=== PATIENT | male | born 1960 | race Caucasian/White ===

== ENCOUNTER 2017-12-25 09:59 | Inpatient (IN) ==
[2017-12-25] MEDS ORDERED: NITROGLYCERIN 2% OINT 1 INCH/GM PACK TOP STA (10:21)
[2017-12-25] MEDS ORDERED: ONDANSETRON 4 MG/2 ML VIAL IV STA (10:21)
[2017-12-25] MEDS ORDERED: MORPHINE 4 MG/1 ML VIAL IV STA (10:21)
[2017-12-25] MEDS ORDERED: methylPREDNISolone SOD SUC 125 MG/2 ML VIAL IV STA (10:21)
[2017-12-25] MEDS ORDERED: FUROSEMIDE 100 MG/10 ML VIAL IV STA (10:21)
[2017-12-25 10:26] LABS: Basophils # 0.1 10*3/uL (0.0-0.2); Basophils % 0.5 % (0.0-0.8); Eosinophils # 0.1 10*3/uL (0.0-0.87); Eosinophils % 0.4 % (0.00-10.9); Hematocrit 43.7 VOL% (42.0-52.0); Hemoglobin 13.8 GM/DL (14.0-18.0); Immature Granulocytes % 1.1 %; Immature Granulocytes Absolute 0.18 #; Lymphocytes # 1.3 10*3/uL (1.4-4.0); Lymphocytes % 7.6 % (21.2-54.2); Mean Corpuscular HGB Conc 31.6 GM/DL (32-36); Mean Corpuscular Hemoglobin 29 PG (27-34); Mean Corpuscular Volume 91.4 FL (87-102); Mean Platelet Volume 10.6 FL (9.6-12.0); Monocytes # 1.6 10*3/uL (0.11-0.8); Monocytes % 9.7 % (1.7-12.7); NRBC # 0.04 10*3/uL; Neutrophils # 13.6 10*3/uL (1.4-7.4); Neutrophils % 80.7 % (38.7-73.9); Platelet Count 349 T/CUMM (130-400); Red Blood Count 4.78 MC/CUMM (3.8-5.5); Red Cell Distribution Width 14.9 % (9.3-17.3); White Blood Count 16.8 T/CUMM (4-12)
[2017-12-25] MEDS ORDERED: ALBUTEROL 2.5 MG/3 ML NEB RESP TX SCH (10:30)
[2017-12-25 10:33] LABS: PT Patient Result 10.8 SECS
[2017-12-25] MEDS ORDERED: NITROGLYCERIN 2% OINT 1 INCH/GM PACK TOP ONE (10:33)
[2017-12-25] MEDS ORDERED: ONDANSETRON 4 MG/2 ML VIAL ONE (10:33)
[2017-12-25] MEDS ORDERED: FUROSEMIDE 100 MG/10 ML VIAL ONE (10:34)
[2017-12-25] MEDS ORDERED: methylPREDNISolone SOD SUC 125 MG/2 ML VIAL ONE (10:34)
[2017-12-25] MEDS ORDERED: MORPHINE 4 MG/1 ML VIAL ONE (10:34)
[2017-12-25 10:45] LABS: Albumin 2.9 G/DL (3.4-5.0); Bilirubin,Total 0.5 MG/DL (0.2-1.0); Calcium 8.9 MG/DL (8.5-10.1); Osmolality,Calculated 276.7 MOS/KG (273-304); Potassium 5.1 MMOL/L (3.5-5.1); Total Protein 7.3 G/DL (6.4-8.3)
[2017-12-25 10:46] LABS: Troponin I Only 0.392 NG/ML (0.00-0.045)
[2017-12-25] MEDS ORDERED: ENOXAPARIN 100 MG/ML SYRINGE SUBCUT STA (10:50)
[2017-12-25] MEDS ORDERED: ENOXAPARIN 120 MG/0.8 ML SYRINGE SUBCUT ONE (11:02)
[2017-12-25] MEDS ORDERED: ETOMIDATE 20 MG/10 ML VIAL IV STA (11:23)
[2017-12-25] MEDS ORDERED: VECURONIUM 10 MG VIAL IV STA ×2 (11:24→12:41)
[2017-12-25] MEDS ORDERED: DEXTROSE 50% 25 GM/50 ML VIAL IV PRN (11:47)
[2017-12-25] MEDS ORDERED: GLUCAGON 1 MG VIAL IM PRN (11:47)
[2017-12-25 11:50] LABS: ABG Base Excess 0.3 MMOL/L (-2.5-2.5); ABG HCO3 24.7 MMOL/L (20-26); ABG Oxygen Saturation 98.1 % (95-100); ABG TCO2 28.8 MMOL/L (23-27)
[2017-12-25 11:55] LABS: ABG PCO2 83.9 MM HG (35-48); ABG PH 7.194 (7.35-7.45)
[2017-12-25] MEDS ORDERED: SODIUM BICARBONATE 50 MEQ/50 ML VIAL IV STA (11:57)
[2017-12-25 12:05] LABS: Risk Ratio 3.5; VLDL CHOLESTEROL 26.8 MG/DL
[2017-12-25] MEDS ORDERED: SODIUM BICARBONATE 50 MEQ/50 ML SYRINGE IV ONE (12:06)
[2017-12-25] MEDS ORDERED: PROPOFOL 1,000 MG/100 ML BOTTLE IV ONE (12:17)
[2017-12-25] MEDS: PROPOFOL 1,000 MG/100 ML BOTTLE IV SCH ×3 (12:28→22:28)
[2017-12-25] MEDS ORDERED: AZITHROMYCIN INJ 500 MG in SODIUM CHLORIDE 0.9% 250 ML IV SCH (12:30)
[2017-12-25 12:31] LABS: Apearance,Urine CLEAR (Clear); Bacteria,Urine Occasional /HPF (Few); Bilirubin,Urine Negative (Negative); Blood, Urine Small mg/dL (Negative); Glucose,Urine (UA) 150 mg/dL (Negative); Ketones,Urine Negative (Negative); Nitrite,Urine Negative (Negative); Protein,Urine >=500 MG/DL; RBC,Urine 1 /HPF (0-4); Squamous Epithelial Cell,Urine Occasional /HPF (0-10); Urine Color Yellow (Yellow); Urine Specific Gravity 1.018 (1.001-1.035); Urine Urobilinogen < 2.0 EU/DL (0.2-1.0); WBC,Urine 1 /HPF (0-6)
[2017-12-25] MEDS ORDERED: VECURONIUM 10 MG VIAL IV ONE ×2 (12:35→16:10)
[2017-12-25] MEDS ORDERED: ALBUTEROL 2.5 MG/3 ML NEB RESP TX PRN (12:44)
[2017-12-25] MEDS: ALBUTEROL/IPRATROPIUM 3 ML NEB RESP TX SCH ×2 (13:18→20:26)
[2017-12-25] MEDS: cefTRIAXone 1,000 MG in SYRINGE 1 EACH IV SCH (14:45)
[2017-12-25 15:09] LABS: ABG HCO3 31.1 MMOL/L (20-26); ABG Oxygen Saturation 93.9 % (95-100); ABG PCO2 42.1 MM HG (35-48); ABG PH 7.486 (7.35-7.45); ABG PO2 66.8 MM HG (80-95); ABG TCO2 32.4 MMOL/L (23-27); Allen Test Positive; Pt O2 Delivery Device Ventilator
[2017-12-25] MEDS: AZITHROMYCIN INJ 500 MG in SODIUM CHLORIDE 0.9% 250 ML IV SCH (15:18)
[2017-12-25] MEDS ORDERED: FUROSEMIDE 40 MG/4 ML VIAL IV SCH (16:00)
[2017-12-25 16:05] LABS: ABG Base Excess 6.3 MMOL/L (-2.5-2.5); ABG HCO3 30.1 MMOL/L (20-26); ABG Oxygen Saturation 95.5 % (95-100); ABG PCO2 40.3 MM HG (35-48); ABG PH 7.491 (7.35-7.45); ABG PO2 80.3 MM HG (80-95); ABG TCO2 31.3 MMOL/L (23-27)
[2017-12-25] MEDS ORDERED: ETOMIDATE 20 MG/10 ML VIAL IV ONE (16:10)
[2017-12-25 16:25] LABS: Lactic Acid 2.6 MMOL/L (0.4-2.0)
[2017-12-25] MEDS ORDERED: INSULIN REGULAR 100 UNIT/ML SUBCUT SCH (16:30)
[2017-12-25] MEDS: ASPIRIN EC 81 MG TABLET PO SCH (16:48)
[2017-12-25 17:43] LABS: Troponin I Only 0.467 NG/ML (0.00-0.045)
[2017-12-25] MEDS: INSULIN REGULAR 100 UNIT/ML SUBCUT SCH (18:28)
[2017-12-25 20:08] LABS: Troponin I Only 0.531 NG/ML (0.00-0.045)
[2017-12-25] MEDS: SIMVASTATIN 10 MG TABLET PO SCH (22:03)
[2017-12-25] MEDS: methylPREDNISolone SOD SUC 40 MG/1 ML VIAL IV SCH (22:03)
[2017-12-25 22:54] LABS: Troponin I Only 0.516 NG/ML (0.00-0.045)
[2017-12-26] MEDS: INSULIN REGULAR 100 UNIT/ML SUBCUT SCH ×5 (00:13→23:45)
[2017-12-26] MEDS: ALBUTEROL/IPRATROPIUM 3 ML NEB RESP TX SCH ×4 (00:58→19:16)
[2017-12-26] MEDS: PROPOFOL 1,000 MG/100 ML BOTTLE IV SCH ×6 (01:06→20:50)
[2017-12-26 03:26] LABS: Basophils % 0.1 % (0.0-0.8); Hematocrit 39.2 VOL% (42.0-52.0); Immature Granulocytes % 0.9 %; Immature Granulocytes Absolute 0.09 #; Lymphocytes # 0.6 10*3/uL (1.4-4.0); Lymphocytes % 5.9 % (21.2-54.2); Mean Corpuscular HGB Conc 33.2 GM/DL (32-36); Mean Corpuscular Hemoglobin 28 PG (27-34); Mean Corpuscular Volume 85.8 FL (87-102); Mean Platelet Volume 11.2 FL (9.6-12.0); Monocytes # 0.5 10*3/uL (0.11-0.8); Monocytes % 5.7 % (1.7-12.7); NRBC # 0.05 10*3/uL; Neutrophils # 8.3 10*3/uL (1.4-7.4); Neutrophils % 87.4 % (38.7-73.9); Platelet Count 319 T/CUMM (130-400); Red Blood Count 4.57 MC/CUMM (3.8-5.5); Red Cell Distribution Width 14.7 % (9.3-17.3); White Blood Count 9.5 T/CUMM (4-12)
[2017-12-26 03:34] LABS: INR 1.1; PT Patient Result 11.4 SECS; Partial Thromboplastin Time 29.4 SECS (0-40)
[2017-12-26 03:56] LABS: Albumin 2.4 G/DL (3.4-5.0); Bilirubin,Total 0.6 MG/DL (0.2-1.0); Calcium 8.1 MG/DL (8.5-10.1); Osmolality,Calculated 289.1 MOS/KG (273-304); Potassium 4.3 MMOL/L (3.5-5.1)
[2017-12-26] MEDS: methylPREDNISolone SOD SUC 40 MG/1 ML VIAL IV SCH ×3 (03:57→19:12)
[2017-12-26 04:36] LABS: Allen Test Positive; Pt O2 Delivery Device Ventilator
[2017-12-26 04:37] LABS: ABG Base Excess 6.2 MMOL/L (-2.5-2.5); ABG Oxygen Saturation 98.9 % (95-100); ABG PCO2 34.8 MM HG (35-48); ABG PH 7.527 (7.35-7.45); ABG TCO2 25.3 MMOL/L (23-27)
[2017-12-26] MEDS: PANTOPRAZOLE 40 MG VIAL IV SCH (08:41)
[2017-12-26] MEDS: ASPIRIN EC 81 MG TABLET PO SCH (09:21)
[2017-12-26] MEDS: METOPROLOL TARTRATE 100 MG TABLET PO SCH (09:21)
[2017-12-26] MEDS: fentaNYL INJ 1,250 MCG in SODIUM CHLORIDE 0.9% 225 ML IV PRN ×3 (09:32→22:27)
[2017-12-26 10:34] LABS: Lactic Acid 2.1 MMOL/L (0.4-2.0)
[2017-12-26] MEDS: cefTRIAXone 1,000 MG in SYRINGE 1 EACH IV SCH (12:35)
[2017-12-26] MEDS: AZITHROMYCIN INJ 500 MG in SODIUM CHLORIDE 0.9% 250 ML IV SCH (14:38)
[2017-12-26 18:48] LABS: Collection Time,Urine 24 HOURS; Total Protein 24 Hr Ur Result 2576 MG/24HR (0-149.1); Total Volume,Urine 1125 ML (400-2000)
[2017-12-26] MEDS: SIMVASTATIN 10 MG TABLET PO SCH (20:59)
[2017-12-27] MEDS: PROPOFOL 1,000 MG/100 ML BOTTLE IV SCH ×6 (00:21→18:28)
[2017-12-27] MEDS: ALBUTEROL/IPRATROPIUM 3 ML NEB RESP TX SCH ×4 (00:25→19:49)
[2017-12-27] MEDS: hydrALAZINE 20 MG/1 ML VIAL IV PRN (00:30)
[2017-12-27 01:57] LABS: ABG Base Excess 1.6 MMOL/L (-2.5-2.5); ABG HCO3 25.7 MMOL/L (20-26); ABG Oxygen Saturation 93.1 % (95-100); ABG PCO2 59.6 MM HG (35-48); ABG PH 7.305 (7.35-7.45); ABG PO2 75.7 MM HG (80-95); ABG TCO2 26.2 MMOL/L (23-27)
[2017-12-27] MEDS: fentaNYL INJ 1,250 MCG in SODIUM CHLORIDE 0.9% 225 ML IV PRN ×6 (02:01→22:48)
[2017-12-27] MEDS: methylPREDNISolone SOD SUC 40 MG/1 ML VIAL IV SCH ×3 (03:00→20:04)
[2017-12-27 03:20] LABS: Basophils % 0.2 % (0.0-0.8); Hematocrit 41.1 VOL% (42.0-52.0); Hemoglobin 12.6 GM/DL (14.0-18.0); Immature Granulocytes % 0.7 %; Immature Granulocytes Absolute 0.09 #; Lymphocytes # 0.5 10*3/uL (1.4-4.0); Lymphocytes % 3.8 % (21.2-54.2); Mean Corpuscular HGB Conc 30.7 GM/DL (32-36); Mean Corpuscular Hemoglobin 28 PG (27-34); Mean Corpuscular Volume 91.5 FL (87-102); Mean Platelet Volume 11.2 FL (9.6-12.0); Monocytes # 1.1 10*3/uL (0.11-0.8); Monocytes % 8.6 % (1.7-12.7); NRBC # 0.02 10*3/uL; Neutrophils # 10.9 10*3/uL (1.4-7.4); Neutrophils % 86.7 % (38.7-73.9); Platelet Count 209 T/CUMM (130-400); Red Blood Count 4.49 MC/CUMM (3.8-5.5); Red Cell Distribution Width 14.8 % (9.3-17.3); White Blood Count 12.5 T/CUMM (4-12)
[2017-12-27 03:46] LABS: Calcium 8.2 MG/DL (8.5-10.1); Osmolality,Calculated 296.1 MOS/KG (273-304); Potassium 5.2 MMOL/L (3.5-5.1)
[2017-12-27 03:58] LABS: Alanine Aminotransferase 22 U/L (16-61); Albumin 2.6 G/DL (3.4-5.0); Alkaline Phosphatase 49 U/L (45-117); Aspartate Amino Transferase 24 U/L (0-37); Bilirubin,Total < 0.39 MG/DL (0.2-1.0); Blood Urea Nitrogen 58 MG/DL (7-18); Calcium 8.4 MG/DL (8.5-10.1); Glucose 277 MG/DL (74-106); Osmolality,Calculated 295.1 MOS/KG (273-304); Potassium 5.2 MMOL/L (3.5-5.1); Sodium 135 MMOL/L (136-145); Total Protein 6.5 G/DL (6.4-8.3)
[2017-12-27 04:04] LABS: Lymphocytes 7 % (20-55); Segmented Neutrophils 83 % (50-85)
[2017-12-27 04:06] LABS: Giant Platelets Few; Hypochromasia Slight; Platelet Estimate Normal; Polychromasia Few
[2017-12-27 04:07] LABS: Total Cells Counted 100
[2017-12-27] MEDS: INSULIN REGULAR 100 UNIT/ML SUBCUT SCH ×3 (05:37→18:24)
[2017-12-27 08:13] LABS: ABG Base Excess 4.3 MMOL/L (-2.5-2.5); ABG HCO3 28.3 MMOL/L (20-26); ABG Oxygen Saturation 96.9 % (95-100); ABG PH 7.467 (7.35-7.45); ABG PO2 87.1 MM HG (80-95); ABG TCO2 24.6 MMOL/L (23-27); Allen Test Positive; Pt O2 Delivery Device Ventilator
[2017-12-27] MEDS: ASPIRIN EC 81 MG TABLET PO SCH (08:43)
[2017-12-27] MEDS: METOPROLOL TARTRATE 100 MG TABLET PO SCH (08:43)
[2017-12-27] MEDS: PANTOPRAZOLE 40 MG VIAL IV SCH (08:44)
[2017-12-27] MEDS: METOCLOPRAMIDE 10 MG/2 ML VIAL IV SCH ×2 (12:24→18:21)
[2017-12-27] MEDS: cefTRIAXone 1,000 MG in SYRINGE 1 EACH IV SCH (12:34)
[2017-12-27] MEDS: AZITHROMYCIN INJ 500 MG in SODIUM CHLORIDE 0.9% 250 ML IV SCH (15:47)
[2017-12-27] MEDS ORDERED: fentaNYL INJ 2,500 MCG in SODIUM CHLORIDE 0.9% 450 ML IV PRN (16:00)
[2017-12-27] MEDS: SIMVASTATIN 10 MG TABLET PO SCH (20:04)
[2017-12-27] MEDS ORDERED: PHENOL 1.4% THROAT SPRAY 177 ML BOTTLE PO PRN (20:54)
[2017-12-28] MEDS: PROPOFOL 1,000 MG/100 ML BOTTLE IV SCH ×7 (00:09→20:45)
[2017-12-28] MEDS: INSULIN REGULAR 100 UNIT/ML SUBCUT SCH ×4 (00:21→17:56)
[2017-12-28] MEDS: METOCLOPRAMIDE 10 MG/2 ML VIAL IV SCH ×4 (00:21→17:56)
[2017-12-28] MEDS: ALBUTEROL/IPRATROPIUM 3 ML NEB RESP TX SCH ×4 (00:48→19:40)
[2017-12-28 03:30] LABS: ABG HCO3 27.9 MMOL/L (20-26); ABG Oxygen Saturation 95.7 % (95-100); ABG PCO2 37.7 MM HG (35-48); ABG PH 7.473 (7.35-7.45); ABG PO2 80.6 MM HG (80-95); ABG TCO2 24.1 MMOL/L (23-27)
[2017-12-28] MEDS: methylPREDNISolone SOD SUC 40 MG/1 ML VIAL IV SCH ×3 (03:57→20:25)
[2017-12-28] MEDS: hydrALAZINE 20 MG/1 ML VIAL IV PRN (04:05)
[2017-12-28] MEDS: fentaNYL INJ 1,250 MCG in SODIUM CHLORIDE 0.9% 225 ML IV PRN ×4 (04:38→19:30)
[2017-12-28 05:10] LABS: Basophils % 0.1 % (0.0-0.8); Eosinophils % 0.1 % (0.00-10.9); Hematocrit 43.6 VOL% (42.0-52.0); Hemoglobin 13.5 GM/DL (14.0-18.0); Immature Granulocytes % 0.8 %; Immature Granulocytes Absolute 0.09 #; Lymphocytes # 0.8 10*3/uL (1.4-4.0); Lymphocytes % 7.3 % (21.2-54.2); Mean Corpuscular Hemoglobin 28 PG (27-34); Mean Corpuscular Volume 90.6 FL (87-102); Mean Platelet Volume 11.8 FL (9.6-12.0); Monocytes # 1.3 10*3/uL (0.11-0.8); Monocytes % 11.1 % (1.7-12.7); Neutrophils # 9.2 10*3/uL (1.4-7.4); Neutrophils % 80.6 % (38.7-73.9); Platelet Count 245 T/CUMM (130-400); Red Blood Count 4.81 MC/CUMM (3.8-5.5); White Blood Count 11.4 T/CUMM (4-12)
[2017-12-28 05:54] LABS: Calcium 8.4 MG/DL (8.5-10.1); Osmolality,Calculated 297.7 MOS/KG (273-304); Potassium 5.4 MMOL/L (3.5-5.1)
[2017-12-28] MEDS: ASPIRIN EC 81 MG TABLET PO SCH (09:35)
[2017-12-28] MEDS: PANTOPRAZOLE 40 MG VIAL IV SCH (09:36)
[2017-12-28] MEDS: METOPROLOL TARTRATE 100 MG TABLET PO SCH (09:36)
[2017-12-28] MEDS: cefTRIAXone 1,000 MG in SYRINGE 1 EACH IV SCH (12:08)
[2017-12-28] MEDS: AZITHROMYCIN INJ 500 MG in SODIUM CHLORIDE 0.9% 250 ML IV SCH (14:33)
[2017-12-28] MEDS: SIMVASTATIN 10 MG TABLET PO SCH (20:25)
[2017-12-29] MEDS: fentaNYL INJ 1,250 MCG in SODIUM CHLORIDE 0.9% 225 ML IV PRN ×5 (00:23→20:26)
[2017-12-29] MEDS: PROPOFOL 1,000 MG/100 ML BOTTLE IV SCH ×8 (00:23→23:43)
[2017-12-29] MEDS: METOCLOPRAMIDE 10 MG/2 ML VIAL IV SCH ×4 (00:57→18:14)
[2017-12-29] MEDS: INSULIN REGULAR 100 UNIT/ML SUBCUT SCH ×4 (01:21→18:23)
[2017-12-29] MEDS: ALBUTEROL/IPRATROPIUM 3 ML NEB RESP TX SCH ×4 (01:27→19:15)
[2017-12-29 03:58] LABS: ABG Base Excess 3.8 MMOL/L (-2.5-2.5); ABG HCO3 27.5 MMOL/L (20-26); ABG Oxygen Saturation 95.9 % (95-100); ABG PCO2 38.2 MM HG (35-48); ABG PH 7.475 (7.35-7.45); ABG PO2 82.5 MM HG (80-95); ABG TCO2 28.7 MMOL/L (23-27)
[2017-12-29] MEDS: methylPREDNISolone SOD SUC 40 MG/1 ML VIAL IV SCH ×3 (04:15→21:08)
[2017-12-29 05:06] LABS: Basophils % 0.2 % (0.0-0.8); Eosinophils # 0.1 10*3/uL (0.0-0.87); Eosinophils % 0.5 % (0.00-10.9); Hemoglobin 12.3 GM/DL (14.0-18.0); Lymphocytes # 0.6 10*3/uL (1.4-4.0); Lymphocytes % 6.5 % (21.2-54.2); Mean Corpuscular HGB Conc 30.8 GM/DL (32-36); Mean Corpuscular Hemoglobin 28 PG (27-34); Mean Corpuscular Volume 91.5 FL (87-102); Mean Platelet Volume 11.3 FL (9.6-12.0); Monocytes # 0.8 10*3/uL (0.11-0.8); Monocytes % 8.2 % (1.7-12.7); Neutrophils # 8.1 10*3/uL (1.4-7.4); Neutrophils % 83.6 % (38.7-73.9); Platelet Count 219 T/CUMM (130-400); Red Blood Count 4.37 MC/CUMM (3.8-5.5); Red Cell Distribution Width 14.8 % (9.3-17.3); White Blood Count 9.7 T/CUMM (4-12)
[2017-12-29 05:26] LABS: Giant Platelets Few; Hypochromasia 1+; Platelet Estimate Adequate
[2017-12-29 05:51] LABS: Calcium 8.1 MG/DL (8.5-10.1); Osmolality,Calculated 300.4 MOS/KG (273-304); Potassium 4.6 MMOL/L (3.5-5.1)
[2017-12-29 06:02] LABS: Prealbumin 26.7 MG/DL (20-40)
[2017-12-29] MEDS: METOPROLOL TARTRATE 100 MG TABLET PO SCH (09:54)
[2017-12-29] MEDS: PANTOPRAZOLE 40 MG VIAL IV SCH (09:54)
[2017-12-29] MEDS: ASPIRIN EC 81 MG TABLET PO SCH (10:00)
[2017-12-29] MEDS: MEROPENEM 1,000 MG in SYRINGE 1 EACH IV SCH ×2 (11:05→18:17)
[2017-12-29] MEDS: hydrALAZINE 20 MG/1 ML VIAL IV PRN (11:34)
[2017-12-29] MEDS: AZITHROMYCIN INJ 500 MG in SODIUM CHLORIDE 0.9% 250 ML IV SCH (14:31)
[2017-12-29] MEDS: SIMVASTATIN 10 MG TABLET PO SCH (21:13)
[2017-12-30] MEDS: INSULIN REGULAR 100 UNIT/ML SUBCUT SCH ×4 (00:03→18:35)
[2017-12-30] MEDS: METOCLOPRAMIDE 10 MG/2 ML VIAL IV SCH ×4 (00:04→18:28)
[2017-12-30] MEDS: fentaNYL INJ 1,250 MCG in SODIUM CHLORIDE 0.9% 225 ML IV PRN ×4 (00:30→22:00)
[2017-12-30] MEDS: ALBUTEROL/IPRATROPIUM 3 ML NEB RESP TX SCH ×4 (01:15→19:15)
[2017-12-30] MEDS: PROPOFOL 1,000 MG/100 ML BOTTLE IV SCH ×7 (01:34→23:00)
[2017-12-30 04:00] LABS: ABG HCO3 23.9 MMOL/L (20-26); ABG Oxygen Saturation 96.2 % (95-100); ABG PH 7.478 (7.35-7.45); ABG PO2 88.8 MM HG (80-95); ABG TCO2 24.9 MMOL/L (23-27)
[2017-12-30] MEDS: MEROPENEM 1,000 MG in SYRINGE 1 EACH IV SCH ×3 (04:28→18:30)
[2017-12-30] MEDS: methylPREDNISolone SOD SUC 40 MG/1 ML VIAL IV SCH ×3 (04:28→21:34)
[2017-12-30 04:31] LABS: Basophils % 0.1 % (0.0-0.8); Eosinophils # 0.1 10*3/uL (0.0-0.87); Eosinophils % 0.8 % (0.00-10.9); Hematocrit 39.8 VOL% (42.0-52.0); Hemoglobin 12.3 GM/DL (14.0-18.0); Immature Granulocytes % 1.2 %; Immature Granulocytes Absolute 0.12 #; Lymphocytes # 0.8 10*3/uL (1.4-4.0); Lymphocytes % 7.4 % (21.2-54.2); Mean Corpuscular HGB Conc 30.9 GM/DL (32-36); Mean Corpuscular Hemoglobin 28 PG (27-34); Mean Corpuscular Volume 90.7 FL (87-102); Mean Platelet Volume 10.5 FL (9.6-12.0); Monocytes # 0.8 10*3/uL (0.11-0.8); Monocytes % 8.2 % (1.7-12.7); Neutrophils # 8.4 10*3/uL (1.4-7.4); Neutrophils % 82.3 % (38.7-73.9); Platelet Count 311 T/CUMM (130-400); Red Blood Count 4.39 MC/CUMM (3.8-5.5); Red Cell Distribution Width 14.8 % (9.3-17.3); White Blood Count 10.2 T/CUMM (4-12)
[2017-12-30 05:01] LABS: Calcium 8.3 MG/DL (8.5-10.1); Osmolality,Calculated 302.1 MOS/KG (273-304); Potassium 4.5 MMOL/L (3.5-5.1)
[2017-12-30] MEDS: ASPIRIN EC 81 MG TABLET PO SCH (09:17)
[2017-12-30] MEDS: METOPROLOL TARTRATE 100 MG TABLET PO SCH (09:17)
[2017-12-30] MEDS: PANTOPRAZOLE 40 MG VIAL IV SCH (09:17)
[2017-12-30] MEDS: amLODIPine 5 MG TABLET PO SCH (11:46)
[2017-12-30] MEDS: AZITHROMYCIN INJ 500 MG in SODIUM CHLORIDE 0.9% 250 ML IV SCH (15:12)
[2017-12-30] MEDS ORDERED: LOSARTAN 25 MG TABLET PO SCH (21:00)
[2017-12-30] MEDS: SIMVASTATIN 10 MG TABLET PO SCH (21:36)
[2017-12-31] MEDS: INSULIN REGULAR 100 UNIT/ML SUBCUT SCH ×5 (00:14→23:39)
[2017-12-31] MEDS: fentaNYL INJ 1,250 MCG in SODIUM CHLORIDE 0.9% 225 ML IV PRN ×4 (00:15→15:20)
[2017-12-31] MEDS: ALBUTEROL/IPRATROPIUM 3 ML NEB RESP TX SCH ×4 (00:38→20:03)
[2017-12-31] MEDS: METOCLOPRAMIDE 10 MG/2 ML VIAL IV SCH ×5 (00:40→23:39)
[2017-12-31] MEDS: PROPOFOL 1,000 MG/100 ML BOTTLE IV SCH ×6 (03:05→22:02)
[2017-12-31 04:07] LABS: ABG Base Excess 0.4 MMOL/L (-2.5-2.5); ABG HCO3 24.4 MMOL/L (20-26); ABG Oxygen Saturation 95.7 % (95-100); ABG PCO2 37.4 MM HG (35-48); ABG PH 7.432 (7.35-7.45); ABG PO2 86.4 MM HG (80-95); ABG TCO2 25.5 MMOL/L (23-27); Allen Test Positive; Pt O2 Delivery Device Ventilator
[2017-12-31] MEDS: MEROPENEM 1,000 MG in SYRINGE 1 EACH IV SCH ×3 (04:20→18:50)
[2017-12-31] MEDS: methylPREDNISolone SOD SUC 40 MG/1 ML VIAL IV SCH ×3 (04:23→20:55)
[2017-12-31 04:25] LABS: Basophils % 0.2 % (0.0-0.8); Eosinophils # 0.1 10*3/uL (0.0-0.87); Eosinophils % 0.6 % (0.00-10.9); Hematocrit 41.2 VOL% (42.0-52.0); Hemoglobin 13.2 GM/DL (14.0-18.0); Immature Granulocytes % 1.1 %; Immature Granulocytes Absolute 0.14 #; Lymphocytes # 0.9 10*3/uL (1.4-4.0); Lymphocytes % 7.2 % (21.2-54.2); Mean Corpuscular Hemoglobin 29 PG (27-34); Mean Platelet Volume 10.5 FL (9.6-12.0); Monocytes # 0.9 10*3/uL (0.11-0.8); Monocytes % 7.7 % (1.7-12.7); Neutrophils # 10.2 10*3/uL (1.4-7.4); Neutrophils % 83.2 % (38.7-73.9); Platelet Count 341 T/CUMM (130-400); Red Blood Count 4.63 MC/CUMM (3.8-5.5); Red Cell Distribution Width 14.6 % (9.3-17.3); White Blood Count 12.3 T/CUMM (4-12)
[2017-12-31 04:58] LABS: Calcium 8.6 MG/DL (8.5-10.1); Potassium 4.7 MMOL/L (3.5-5.1)
[2017-12-31] MEDS: ASPIRIN EC 81 MG TABLET PO SCH (08:50)
[2017-12-31] MEDS: PANTOPRAZOLE 40 MG VIAL IV SCH (08:50)
[2017-12-31] MEDS: METOPROLOL TARTRATE 100 MG TABLET PO SCH (08:50)
[2017-12-31] MEDS: amLODIPine 5 MG TABLET PO SCH (08:50)
[2017-12-31] MEDS: AZITHROMYCIN INJ 500 MG in SODIUM CHLORIDE 0.9% 250 ML IV SCH (14:38)
[2017-12-31] MEDS: TRACE ELEMENTS (5) 1 ML, MULTIVITAMIN INJ 10 ML in AMINO ACIDS/DEXT/LYTES 4.25-5% 2,000 ML IV SCH (16:48)
[2017-12-31] MEDS ORDERED: DEXTROSE 10% 1,000 ML IV PRN (17:00)
[2017-12-31] MEDS: fentaNYL INJ 2,500 MCG in SODIUM CHLORIDE 0.9% 450 ML IV PRN (19:46)
[2017-12-31] MEDS: SIMVASTATIN 10 MG TABLET PO SCH (20:55)
[2018-01-01] MEDS: hydrALAZINE 20 MG/1 ML VIAL IV PRN (00:04)
[2018-01-01] MEDS: PROPOFOL 1,000 MG/100 ML BOTTLE IV SCH ×8 (00:39→21:45)
[2018-01-01] MEDS: fentaNYL INJ 2,500 MCG in SODIUM CHLORIDE 0.9% 450 ML IV PRN ×5 (00:40→22:59)
[2018-01-01] MEDS: ALBUTEROL/IPRATROPIUM 3 ML NEB RESP TX SCH ×4 (01:18→19:40)
[2018-01-01] MEDS: methylPREDNISolone SOD SUC 40 MG/1 ML VIAL IV SCH (03:10)
[2018-01-01] MEDS: MEROPENEM 1,000 MG in SYRINGE 1 EACH IV SCH ×3 (03:10→18:51)
[2018-01-01 03:31] LABS: ABG Base Excess 0.2 MMOL/L (-2.5-2.5); ABG HCO3 24.2 MMOL/L (20-26); ABG Oxygen Saturation 93.3 % (95-100); ABG PCO2 37.3 MM HG (35-48); ABG TCO2 25.3 MMOL/L (23-27)
[2018-01-01 06:30] LABS: Basophils % 0.2 % (0.0-0.8); Eosinophils # 0.1 10*3/uL (0.0-0.87); Eosinophils % 0.5 % (0.00-10.9); Hematocrit 41.2 VOL% (42.0-52.0); Hemoglobin 12.8 GM/DL (14.0-18.0); Immature Granulocytes % 1.6 %; Immature Granulocytes Absolute 0.23 #; Lymphocytes # 0.8 10*3/uL (1.4-4.0); Lymphocytes % 5.8 % (21.2-54.2); Mean Corpuscular HGB Conc 31.1 GM/DL (32-36); Mean Corpuscular Hemoglobin 28 PG (27-34); Mean Corpuscular Volume 91.6 FL (87-102); Mean Platelet Volume 11.5 FL (9.6-12.0); Monocytes # 0.9 10*3/uL (0.11-0.8); Monocytes % 6.4 % (1.7-12.7); Neutrophils # 12.2 10*3/uL (1.4-7.4); Neutrophils % 85.5 % (38.7-73.9); Platelet Count 241 T/CUMM (130-400); Red Cell Distribution Width 14.6 % (9.3-17.3); White Blood Count 14.3 T/CUMM (4-12)
[2018-01-01 06:31] LABS: Prealbumin 34.2 MG/DL (20-40)
[2018-01-01] MEDS: METOCLOPRAMIDE 10 MG/2 ML VIAL IV SCH ×3 (06:34→18:09)
[2018-01-01] MEDS: INSULIN REGULAR 100 UNIT/ML SUBCUT SCH ×3 (06:34→18:08)
[2018-01-01 06:41] LABS: Calcium 8.3 MG/DL (8.5-10.1); Osmolality,Calculated 297.1 MOS/KG (273-304)
[2018-01-01 07:00] LABS: Hypochromasia Slight
[2018-01-01] MEDS: PANTOPRAZOLE 40 MG VIAL IV SCH (09:29)
[2018-01-01] MEDS: METOPROLOL TARTRATE 100 MG TABLET PO SCH (09:32)
[2018-01-01] MEDS: ASPIRIN EC 81 MG TABLET PO SCH (09:32)
[2018-01-01] MEDS: amLODIPine 5 MG TABLET PO SCH (09:32)
[2018-01-01] MEDS: methylPREDNISolone SOD SUC 125 MG/2 ML VIAL IV SCH ×2 (11:37→18:54)
[2018-01-01] MEDS: AZITHROMYCIN INJ 500 MG in SODIUM CHLORIDE 0.9% 250 ML IV SCH (14:53)
[2018-01-01] MEDS: TRACE ELEMENTS (5) 1 ML, MULTIVITAMIN INJ 10 ML in AMINO ACIDS/DEXT/LYTES 4.25-5% 2,000 ML IV SCH (17:35)
[2018-01-01] MEDS: SIMVASTATIN 10 MG TABLET PO SCH (20:51)
[2018-01-02] MEDS: INSULIN REGULAR 100 UNIT/ML SUBCUT SCH ×5 (00:18→23:16)
[2018-01-02] MEDS: PROPOFOL 1,000 MG/100 ML BOTTLE IV SCH ×10 (00:19→23:56)
[2018-01-02] MEDS: METOCLOPRAMIDE 10 MG/2 ML VIAL IV SCH ×5 (00:19→23:16)
[2018-01-02] MEDS: ALBUTEROL/IPRATROPIUM 3 ML NEB RESP TX SCH ×4 (00:43→19:36)
[2018-01-02] MEDS: methylPREDNISolone SOD SUC 125 MG/2 ML VIAL IV SCH ×3 (03:11→18:15)
[2018-01-02] MEDS: MEROPENEM 1,000 MG in SYRINGE 1 EACH IV SCH ×3 (03:12→18:17)
[2018-01-02] MEDS: fentaNYL INJ 2,500 MCG in SODIUM CHLORIDE 0.9% 450 ML IV PRN ×4 (03:30→20:28)
[2018-01-02 04:16] LABS: ABG Base Excess -2.1 MMOL/L (-2.5-2.5); ABG HCO3 22.5 MMOL/L (20-26); ABG Oxygen Saturation 89.9 % (95-100); ABG PCO2 49.8 MM HG (35-48); ABG PH 7.308 (7.35-7.45); ABG PO2 67.8 MM HG (80-95); ABG TCO2 21.9 MMOL/L (23-27)
[2018-01-02 06:13] LABS: Basophils % 0.2 % (0.0-0.8); Eosinophils % 0.1 % (0.00-10.9); Hemoglobin 13.2 GM/DL (14.0-18.0); Immature Granulocytes % 2.4 %; Immature Granulocytes Absolute 0.35 #; Lymphocytes # 0.9 10*3/uL (1.4-4.0); Lymphocytes % 6.2 % (21.2-54.2); Mean Corpuscular HGB Conc 31.4 GM/DL (32-36); Mean Corpuscular Hemoglobin 28 PG (27-34); Mean Corpuscular Volume 90.1 FL (87-102); Mean Platelet Volume 10.6 FL (9.6-12.0); Monocytes % 6.6 % (1.7-12.7); Neutrophils # 12.3 10*3/uL (1.4-7.4); Neutrophils % 84.5 % (38.7-73.9); Platelet Count 353 T/CUMM (130-400); Red Blood Count 4.66 MC/CUMM (3.8-5.5); Red Cell Distribution Width 14.4 % (9.3-17.3); White Blood Count 14.6 T/CUMM (4-12)
[2018-01-02 06:31] LABS: Calcium 8.4 MG/DL (8.5-10.1); Osmolality,Calculated 291.5 MOS/KG (273-304); Potassium 5.2 MMOL/L (3.5-5.1)
[2018-01-02] MEDS: PANTOPRAZOLE 40 MG VIAL IV SCH (08:05)
[2018-01-02] MEDS: ASPIRIN EC 81 MG TABLET PO SCH (08:06)
[2018-01-02] MEDS: METOPROLOL TARTRATE 100 MG TABLET PO SCH (08:06)
[2018-01-02] MEDS: amLODIPine 5 MG TABLET PO SCH (08:06)
[2018-01-02 09:42] LABS: Allen Test Positive; Pt O2 Delivery Device Ventilator
[2018-01-02 09:43] LABS: ABG Base Excess -1.1 MMOL/L (-2.5-2.5); ABG HCO3 22.6 MMOL/L (20-26); ABG Oxygen Saturation 96.7 % (95-100); ABG PCO2 34.7 MM HG (35-48); ABG PH 7.431 (7.35-7.45); ABG PO2 92.8 MM HG (80-95); ABG TCO2 23.6 MMOL/L (23-27)
[2018-01-02] MEDS: hydrALAZINE 20 MG/1 ML VIAL IV PRN (13:07)
[2018-01-02 13:39] LABS: Allen Test Positive; Pt O2 Delivery Device Ventilator
[2018-01-02 13:40] LABS: ABG Base Excess -1.5 MMOL/L (-2.5-2.5); ABG HCO3 23.1 MMOL/L (20-26); ABG Oxygen Saturation 97.1 % (95-100); ABG PCO2 34.7 MM HG (35-48); ABG PH 7.416 (7.35-7.45); ABG PO2 93.5 MM HG (80-95); ABG TCO2 19.3 MMOL/L (23-27)
[2018-01-02] MEDS: AZITHROMYCIN INJ 500 MG in SODIUM CHLORIDE 0.9% 250 ML IV SCH (14:49)
[2018-01-02] MEDS: TRACE ELEMENTS (5) 1 ML, MULTIVITAMIN INJ 10 ML in AMINO ACIDS/DEXT/LYTES 4.25-5% 2,000 ML IV SCH (16:36)
[2018-01-02] MEDS: SIMVASTATIN 10 MG TABLET PO SCH (20:12)
[2018-01-03] MEDS: ALBUTEROL/IPRATROPIUM 3 ML NEB RESP TX SCH ×4 (00:55→19:16)
[2018-01-03] MEDS: fentaNYL INJ 2,500 MCG in SODIUM CHLORIDE 0.9% 450 ML IV PRN ×3 (00:59→10:01)
[2018-01-03] MEDS: hydrALAZINE 20 MG/1 ML VIAL IV PRN (01:10)
[2018-01-03] MEDS: PROPOFOL 1,000 MG/100 ML BOTTLE IV SCH ×3 (02:18→06:24)
[2018-01-03] MEDS: methylPREDNISolone SOD SUC 125 MG/2 ML VIAL IV SCH ×3 (03:01→18:24)
[2018-01-03] MEDS: MEROPENEM 1,000 MG in SYRINGE 1 EACH IV SCH ×3 (03:01→18:24)
[2018-01-03 04:30] LABS: ABG Base Excess -1.8 MMOL/L (-2.5-2.5); ABG HCO3 22.4 MMOL/L (20-26); ABG Oxygen Saturation 92.9 % (95-100); ABG PCO2 36.7 MM HG (35-48); ABG PH 7.404 (7.35-7.45); ABG PO2 73.8 MM HG (80-95); ABG TCO2 23.6 MMOL/L (23-27); Allen Test Positive; Pt O2 Delivery Device Ventilator
[2018-01-03] MEDS: METOCLOPRAMIDE 10 MG/2 ML VIAL IV SCH ×3 (05:20→17:24)
[2018-01-03] MEDS: INSULIN REGULAR 100 UNIT/ML SUBCUT SCH ×3 (05:20→17:35)
[2018-01-03 07:01] LABS: ABG Base Excess -5.1 MMOL/L (-2.5-2.5); ABG HCO3 20.2 MMOL/L (20-26); ABG Oxygen Saturation 94.2 % (95-100); ABG PCO2 51.7 MM HG (35-48); ABG PH 7.255 (7.35-7.45); ABG PO2 87.5 MM HG (80-95); ABG TCO2 20.2 MMOL/L (23-27); Allen Test Positive; Pt O2 Delivery Device Ventilator
[2018-01-03] MEDS: METOPROLOL TARTRATE 100 MG TABLET PO SCH (08:45)
[2018-01-03] MEDS: PANTOPRAZOLE 40 MG VIAL IV SCH (08:45)
[2018-01-03] MEDS: ASPIRIN EC 81 MG TABLET PO SCH (08:45)
[2018-01-03] MEDS: amLODIPine 5 MG TABLET PO SCH (08:45)
[2018-01-03] MEDS: MIDAZOLAM 100 MG in SODIUM CHLORIDE 0.9% 80 ML IV PRN ×2 (08:51→21:18)
[2018-01-03] MEDS: fentaNYL INJ 2,500 MCG in SODIUM CHLORIDE 0.9% 200 ML IV PRN ×4 (13:27→21:18)
[2018-01-03] MEDS: AZITHROMYCIN INJ 500 MG in SODIUM CHLORIDE 0.9% 250 ML IV SCH (16:05)
[2018-01-03] MEDS: TRACE ELEMENTS (5) 1 ML, MULTIVITAMIN INJ 10 ML in AMINO ACIDS/DEXT/LYTES 4.25-5% 2,000 ML IV SCH (17:26)
[2018-01-03] MEDS ORDERED: SUCCINYLCHOLINE 200 MG/10 ML VIAL ONE (20:24)
[2018-01-03] MEDS: SIMVASTATIN 10 MG TABLET PO SCH (21:42)
[2018-01-04] MEDS: fentaNYL INJ 2,500 MCG in SODIUM CHLORIDE 0.9% 200 ML IV PRN ×8 (00:26→22:56)
[2018-01-04] MEDS: ALBUTEROL/IPRATROPIUM 3 ML NEB RESP TX SCH ×4 (01:13→19:53)
[2018-01-04] MEDS: methylPREDNISolone SOD SUC 125 MG/2 ML VIAL IV SCH ×3 (02:54→18:03)
[2018-01-04] MEDS: MEROPENEM 1,000 MG in SYRINGE 1 EACH IV SCH ×3 (02:55→18:04)
[2018-01-04 04:41] LABS: ABG Base Excess -2.3 MMOL/L (-2.5-2.5); ABG HCO3 22.5 MMOL/L (20-26); ABG Oxygen Saturation 97.6 % (95-100); ABG PCO2 39.5 MM HG (35-48); ABG PH 7.368 (7.35-7.45); ABG TCO2 19.7 MMOL/L (23-27); Allen Test Positive; Pt O2 Delivery Device Ventilator
[2018-01-04 05:30] LABS: Basophils % 0.1 % (0.0-0.8); Eosinophils % 0.2 % (0.00-10.9); Hematocrit 41.7 VOL% (42.0-52.0); Hemoglobin 13.8 GM/DL (14.0-18.0); Immature Granulocytes % 2.4 %; Lymphocytes # 0.8 10*3/uL (1.4-4.0); Lymphocytes % 4.8 % (21.2-54.2); Mean Corpuscular HGB Conc 33.1 GM/DL (32-36); Mean Corpuscular Hemoglobin 29 PG (27-34); Mean Corpuscular Volume 86.5 FL (87-102); Mean Platelet Volume 10.5 FL (9.6-12.0); Monocytes # 1.2 10*3/uL (0.11-0.8); Monocytes % 7.2 % (1.7-12.7); Neutrophils # 14.2 10*3/uL (1.4-7.4); Neutrophils % 85.3 % (38.7-73.9); Platelet Count 349 T/CUMM (130-400); Red Blood Count 4.82 MC/CUMM (3.8-5.5); Red Cell Distribution Width 14.4 % (9.3-17.3); White Blood Count 16.6 T/CUMM (4-12)
[2018-01-04] MEDS: INSULIN REGULAR 100 UNIT/ML SUBCUT SCH ×5 (05:35→23:25)
[2018-01-04] MEDS: METOCLOPRAMIDE 10 MG/2 ML VIAL IV SCH ×5 (05:35→21:13)
[2018-01-04 05:57] LABS: Calcium 8.8 MG/DL (8.5-10.1); Osmolality,Calculated 293.4 MOS/KG (273-304); Potassium 5.2 MMOL/L (3.5-5.1)
[2018-01-04 06:16] LABS: Lymphocytes 7 % (20-55); Platelet Estimate Adequate; Segmented Neutrophils 86 % (50-85); Total Cells Counted 100
[2018-01-04 06:17] LABS: Giant Platelets Few; Hypochromasia Slight
[2018-01-04] MEDS: PANTOPRAZOLE 40 MG VIAL IV SCH (08:41)
[2018-01-04] MEDS: amLODIPine 5 MG TABLET PO SCH (08:42)
[2018-01-04] MEDS: ASPIRIN EC 81 MG TABLET PO SCH (08:42)
[2018-01-04] MEDS: METOPROLOL TARTRATE 100 MG TABLET PO SCH (08:42)
[2018-01-04] MEDS: FUROSEMIDE 40 MG/4 ML VIAL IV SCH (08:42)
[2018-01-04] MEDS ORDERED: FUROSEMIDE 40 MG/4 ML VIAL IV SCH (09:00)
[2018-01-04] MEDS: MIDAZOLAM 100 MG in SODIUM CHLORIDE 0.9% 80 ML IV PRN (11:20)
[2018-01-04] MEDS: AZITHROMYCIN INJ 500 MG in SODIUM CHLORIDE 0.9% 250 ML IV SCH (15:55)
[2018-01-04] MEDS: TRACE ELEMENTS (5) 1 ML, MULTIVITAMIN INJ 10 ML in AMINO ACIDS/DEXT/LYTES 4.25-5% 2,000 ML IV SCH (17:58)
[2018-01-04] MEDS: SIMVASTATIN 10 MG TABLET PO SCH (20:01)
[2018-01-04] MEDS: hydrALAZINE 20 MG/1 ML VIAL IV PRN (20:14)
[2018-01-05] MEDS: ALBUTEROL/IPRATROPIUM 3 ML NEB RESP TX SCH ×4 (01:17→19:52)
[2018-01-05] MEDS: fentaNYL INJ 2,500 MCG in SODIUM CHLORIDE 0.9% 200 ML IV PRN ×7 (01:34→21:47)
[2018-01-05] MEDS: methylPREDNISolone SOD SUC 125 MG/2 ML VIAL IV SCH ×3 (03:01→18:16)
[2018-01-05] MEDS: METOCLOPRAMIDE 10 MG/2 ML VIAL IV SCH ×4 (03:01→21:25)
[2018-01-05] MEDS: MEROPENEM 1,000 MG in SYRINGE 1 EACH IV SCH ×3 (03:02→18:15)
[2018-01-05] MEDS: MIDAZOLAM 100 MG in SODIUM CHLORIDE 0.9% 80 ML IV PRN ×2 (03:10→16:34)
[2018-01-05 04:50] LABS: ABG Base Excess -1.1 MMOL/L (-2.5-2.5); ABG HCO3 23.5 MMOL/L (20-26); ABG Oxygen Saturation 97.4 % (95-100); ABG TCO2 20.4 MMOL/L (23-27); Allen Test Positive; Pt O2 Delivery Device Ventilator
[2018-01-05] MEDS: INSULIN REGULAR 100 UNIT/ML SUBCUT SCH ×3 (05:40→17:41)
[2018-01-05 05:56] LABS: Basophils # 0.1 10*3/uL (0.0-0.2); Basophils % 0.3 % (0.0-0.8); Eosinophils % 0.2 % (0.00-10.9); Hemoglobin 14.1 GM/DL (14.0-18.0); Immature Granulocytes % 2.2 %; Immature Granulocytes Absolute 0.37 #; Lymphocytes # 0.9 10*3/uL (1.4-4.0); Mean Corpuscular Hemoglobin 28 PG (27-34); Mean Corpuscular Volume 87.8 FL (87-102); Mean Platelet Volume 10.9 FL (9.6-12.0); Monocytes # 1.3 10*3/uL (0.11-0.8); Monocytes % 7.6 % (1.7-12.7); Neutrophils # 14.5 10*3/uL (1.4-7.4); Neutrophils % 84.7 % (38.7-73.9); Platelet Count 361 T/CUMM (130-400); Red Blood Count 5.01 MC/CUMM (3.8-5.5); Red Cell Distribution Width 14.3 % (9.3-17.3); White Blood Count 17.1 T/CUMM (4-12)
[2018-01-05 06:16] LABS: Calcium 8.8 MG/DL (8.5-10.1); Osmolality,Calculated 295.3 MOS/KG (273-304)
[2018-01-05 06:20] LABS: Prealbumin 39.1 MG/DL (20-40)
[2018-01-05] MEDS: FUROSEMIDE 40 MG/4 ML VIAL IV SCH (08:17)
[2018-01-05] MEDS: PANTOPRAZOLE 40 MG VIAL IV SCH (08:17)
[2018-01-05] MEDS: ASPIRIN EC 81 MG TABLET PO SCH (08:18)
[2018-01-05] MEDS: amLODIPine 5 MG TABLET PO SCH (08:18)
[2018-01-05] MEDS: METOPROLOL TARTRATE 100 MG TABLET PO SCH (08:18)
[2018-01-05] MEDS: ENOXAPARIN 40 MG/0.4 ML SYRINGE SUBCUT SCH (08:42)
[2018-01-05] MEDS: AZITHROMYCIN INJ 500 MG in SODIUM CHLORIDE 0.9% 250 ML IV SCH (16:28)
[2018-01-05] MEDS: TRACE ELEMENTS (5) 1 ML, MULTIVITAMIN INJ 10 ML in AMINO ACIDS/DEXT/LYTES 4.25-5% 2,000 ML IV SCH (20:20)
[2018-01-05] MEDS: SIMVASTATIN 10 MG TABLET PO SCH (21:31)
[2018-01-06] MEDS: ALBUTEROL/IPRATROPIUM 3 ML NEB RESP TX SCH ×4 (00:14→19:23)
[2018-01-06] MEDS: fentaNYL INJ 2,500 MCG in SODIUM CHLORIDE 0.9% 200 ML IV PRN ×6 (01:15→20:24)
[2018-01-06] MEDS: INSULIN REGULAR 100 UNIT/ML SUBCUT SCH ×5 (01:19→23:39)
[2018-01-06] MEDS: methylPREDNISolone SOD SUC 125 MG/2 ML VIAL IV SCH ×3 (03:05→18:02)
[2018-01-06] MEDS: MEROPENEM 1,000 MG in SYRINGE 1 EACH IV SCH ×3 (03:07→18:02)
[2018-01-06] MEDS: METOCLOPRAMIDE 10 MG/2 ML VIAL IV SCH ×4 (03:10→21:15)
[2018-01-06 03:51] LABS: ABG Base Excess -1.1 MMOL/L (-2.5-2.5); ABG HCO3 23.5 MMOL/L (20-26); ABG Oxygen Saturation 97.8 % (95-100); ABG PCO2 43.4 MM HG (35-48); ABG TCO2 21.1 MMOL/L (23-27)
[2018-01-06 05:43] LABS: Basophils % 0.1 % (0.0-0.8); Eosinophils % 0.1 % (0.00-10.9); Hematocrit 43.5 VOL% (42.0-52.0); Hemoglobin 14.3 GM/DL (14.0-18.0); Immature Granulocytes % 1.4 %; Immature Granulocytes Absolute 0.32 #; Lymphocytes # 0.5 10*3/uL (1.4-4.0); Lymphocytes % 1.9 % (21.2-54.2); Mean Corpuscular HGB Conc 32.9 GM/DL (32-36); Mean Corpuscular Hemoglobin 28 PG (27-34); Mean Corpuscular Volume 86.3 FL (87-102); Mean Platelet Volume 10.8 FL (9.6-12.0); Monocytes # 1.7 10*3/uL (0.11-0.8); Monocytes % 7.2 % (1.7-12.7); Neutrophils # 20.7 10*3/uL (1.4-7.4); Neutrophils % 89.3 % (38.7-73.9); Platelet Count 351 T/CUMM (130-400); Red Blood Count 5.04 MC/CUMM (3.8-5.5); Red Cell Distribution Width 14.5 % (9.3-17.3); White Blood Count 23.2 T/CUMM (4-12)
[2018-01-06] MEDS: hydrALAZINE 20 MG/1 ML VIAL IV PRN (05:50)
[2018-01-06 06:01] LABS: Calcium 8.9 MG/DL (8.5-10.1); Osmolality,Calculated 298.1 MOS/KG (273-304); Potassium 4.8 MMOL/L (3.5-5.1)
[2018-01-06 06:02] LABS: Giant Platelets Few; Hypochromasia 1+; Lymphocytes 1 % (20-55); Platelet Estimate Adequate; Segmented Neutrophils 90 % (50-85); Total Cells Counted 100
[2018-01-06] MEDS: MIDAZOLAM 100 MG in SODIUM CHLORIDE 0.9% 80 ML IV PRN ×2 (06:15→18:05)
[2018-01-06] MEDS: ENOXAPARIN 40 MG/0.4 ML SYRINGE SUBCUT SCH (08:10)
[2018-01-06] MEDS: PANTOPRAZOLE 40 MG VIAL IV SCH (08:10)
[2018-01-06] MEDS: ASPIRIN EC 81 MG TABLET PO SCH (08:11)
[2018-01-06] MEDS: METOPROLOL TARTRATE 100 MG TABLET PO SCH (08:11)
[2018-01-06] MEDS: amLODIPine 5 MG TABLET PO SCH (08:11)
[2018-01-06] MEDS: AZITHROMYCIN INJ 500 MG in SODIUM CHLORIDE 0.9% 250 ML IV SCH (15:50)
[2018-01-06] MEDS: TRACE ELEMENTS (5) 1 ML, MULTIVITAMIN INJ 10 ML in AMINO ACIDS/DEXT/LYTES 4.25-5% 2,000 ML IV SCH (17:58)
[2018-01-06] MEDS: SIMVASTATIN 10 MG TABLET PO SCH (21:20)
[2018-01-06] MEDS: ACETAMINOPHEN 325 MG TABLET PO PRN (23:47)
[2018-01-07] MEDS: ALBUTEROL/IPRATROPIUM 3 ML NEB RESP TX SCH ×4 (00:11→19:58)
[2018-01-07] MEDS: LEVOFLOXACIN INJ 750 MG in PREMIX 1 EACH IV SCH (00:40)
[2018-01-07 01:18] LABS: Basophils # 0.1 10*3/uL (0.0-0.2); Basophils % 0.2 % (0.0-0.8); Hematocrit 46.3 VOL% (42.0-52.0); Hemoglobin 15.1 GM/DL (14.0-18.0); Immature Granulocytes % 1.3 %; Immature Granulocytes Absolute 0.38 #; Lymphocytes # 0.3 10*3/uL (1.4-4.0); Mean Corpuscular HGB Conc 32.6 GM/DL (32-36); Mean Corpuscular Hemoglobin 28 PG (27-34); Mean Corpuscular Volume 86.9 FL (87-102); Mean Platelet Volume 11.1 FL (9.6-12.0); Monocytes # 1.8 10*3/uL (0.11-0.8); Monocytes % 5.9 % (1.7-12.7); Neutrophils % 91.6 % (38.7-73.9); Platelet Count 369 T/CUMM (130-400); Red Blood Count 5.33 MC/CUMM (3.8-5.5); Red Cell Distribution Width 14.6 % (9.3-17.3); White Blood Count 29.5 T/CUMM (4-12)
[2018-01-07 01:36] LABS: Calcium 9.1 MG/DL (8.5-10.1); Potassium 4.8 MMOL/L (3.5-5.1)
[2018-01-07 01:45] LABS: Band Neutrophils 3 % (0-10); Lymphocytes 3 % (20-55); Platelet Estimate Normal; Segmented Neutrophils 92 % (50-85); Total Cells Counted 100
[2018-01-07] MEDS: methylPREDNISolone SOD SUC 125 MG/2 ML VIAL IV SCH ×3 (03:05→18:36)
[2018-01-07] MEDS: MEROPENEM 1,000 MG in SYRINGE 1 EACH IV SCH ×2 (03:07→10:23)
[2018-01-07] MEDS: METOCLOPRAMIDE 10 MG/2 ML VIAL IV SCH ×4 (03:10→21:40)
[2018-01-07] MEDS: fentaNYL INJ 2,500 MCG in SODIUM CHLORIDE 0.9% 200 ML IV PRN ×6 (03:25→20:14)
[2018-01-07 03:49] LABS: ABG Base Excess -2.5 MMOL/L (-2.5-2.5); ABG HCO3 22.3 MMOL/L (20-26); ABG Oxygen Saturation 96.5 % (95-100); ABG PCO2 46.9 MM HG (35-48); ABG PO2 96.4 MM HG (80-95); ABG TCO2 20.8 MMOL/L (23-27)
[2018-01-07] MEDS: MIDAZOLAM 100 MG in SODIUM CHLORIDE 0.9% 80 ML IV PRN (05:53)
[2018-01-07] MEDS: INSULIN REGULAR 100 UNIT/ML SUBCUT SCH ×3 (05:59→18:36)
[2018-01-07] MEDS: ENOXAPARIN 40 MG/0.4 ML SYRINGE SUBCUT SCH (07:57)
[2018-01-07] MEDS: METOPROLOL TARTRATE 100 MG TABLET PO SCH (08:05)
[2018-01-07] MEDS: amLODIPine 5 MG TABLET PO SCH (08:05)
[2018-01-07] MEDS: ASPIRIN EC 81 MG TABLET PO SCH (08:05)
[2018-01-07] MEDS: PANTOPRAZOLE 40 MG VIAL IV SCH (08:05)
[2018-01-07] MEDS: ACETAMINOPHEN 325 MG TABLET PO PRN ×2 (15:59→21:39)
[2018-01-07] MEDS: TRACE ELEMENTS (5) 1 ML, MULTIVITAMIN INJ 10 ML in AMINO ACIDS/DEXT/LYTES 4.25-5% 2,000 ML IV SCH (17:18)
[2018-01-07] MEDS: PIPERACILLIN/TAZOBACTAM 3,375 MG in SODIUM CHLORIDE 0.9% 100 ML IV SCH (18:37)
[2018-01-07] MEDS: SIMVASTATIN 10 MG TABLET PO SCH (21:39)
[2018-01-07] MEDS: hydrALAZINE 20 MG/1 ML VIAL IV PRN (21:40)
[2018-01-07] MEDS ORDERED: VANCOMYCIN INJ 2,000 MG in SODIUM CHLORIDE 0.9% 500 ML IV SCH (22:00)
[2018-01-08] MEDS: INSULIN REGULAR 100 UNIT/ML SUBCUT SCH ×4 (00:29→18:26)
[2018-01-08] MEDS: LEVOFLOXACIN INJ 750 MG in PREMIX 1 EACH IV SCH (00:30)
[2018-01-08] MEDS: ALBUTEROL/IPRATROPIUM 3 ML NEB RESP TX SCH ×4 (00:43→20:01)
[2018-01-08] MEDS: methylPREDNISolone SOD SUC 125 MG/2 ML VIAL IV SCH ×3 (02:02→18:26)
[2018-01-08] MEDS: PIPERACILLIN/TAZOBACTAM 3,375 MG in SODIUM CHLORIDE 0.9% 100 ML IV SCH ×3 (02:02→18:26)
[2018-01-08 02:29] LABS: Basophils # 0.1 10*3/uL (0.0-0.2); Basophils % 0.2 % (0.0-0.8); Hematocrit 45.4 VOL% (42.0-52.0); Immature Granulocytes % 1.6 %; Immature Granulocytes Absolute 0.51 #; Lymphocytes # 0.4 10*3/uL (1.4-4.0); Lymphocytes % 1.2 % (21.2-54.2); Mean Corpuscular HGB Conc 30.8 GM/DL (32-36); Mean Corpuscular Hemoglobin 28 PG (27-34); Mean Corpuscular Volume 90.8 FL (87-102); Monocytes # 1.4 10*3/uL (0.11-0.8); Monocytes % 4.5 % (1.7-12.7); Neutrophils # 28.7 10*3/uL (1.4-7.4); Neutrophils % 92.5 % (38.7-73.9); Platelet Count 276 T/CUMM (130-400); Red Cell Distribution Width 14.6 % (9.3-17.3); White Blood Count 31.1 T/CUMM (4-12)
[2018-01-08 02:52] LABS: Calcium 8.6 MG/DL (8.5-10.1); Osmolality,Calculated 310.8 MOS/KG (273-304)
[2018-01-08 03:02] LABS: Band Neutrophils 2 % (0-10); Lymphocytes 3 % (20-55); Platelet Estimate Normal; Segmented Neutrophils 95 % (50-85); Total Cells Counted 100
[2018-01-08 04:15] LABS: ABG Base Excess -3.4 MMOL/L (-2.5-2.5); ABG HCO3 21.4 MMOL/L (20-26); ABG Oxygen Saturation 90.1 % (95-100); ABG PH 7.305 (7.35-7.45); ABG PO2 65.3 MM HG (80-95); ABG TCO2 20.3 MMOL/L (23-27); Allen Test Positive; Pt O2 Delivery Device Ventilator
[2018-01-08] MEDS: METOCLOPRAMIDE 10 MG/2 ML VIAL IV SCH ×4 (05:46→21:24)
[2018-01-08] MEDS: fentaNYL INJ 2,500 MCG in SODIUM CHLORIDE 0.9% 200 ML IV PRN ×2 (07:24→12:58)
[2018-01-08] MEDS: ENOXAPARIN 40 MG/0.4 ML SYRINGE SUBCUT SCH (08:31)
[2018-01-08] MEDS: PANTOPRAZOLE 40 MG VIAL IV SCH (08:32)
[2018-01-08] MEDS: METOPROLOL TARTRATE 100 MG TABLET PO SCH (08:32)
[2018-01-08] MEDS: amLODIPine 5 MG TABLET PO SCH (08:32)
[2018-01-08] MEDS: ASPIRIN EC 81 MG TABLET PO SCH (08:32)
[2018-01-08] MEDS: MIDAZOLAM 100 MG in SODIUM CHLORIDE 0.9% 80 ML IV PRN (08:55)
[2018-01-08 09:19] LABS: INR 1.2; PT Patient Result 12.8 SECS; Partial Thromboplastin Time 32.5 SECS (0-40)
[2018-01-08] MEDS ORDERED: FLUCONAZOLE INJ 400 MG in PREMIX 1 EACH IV SCH (09:30)
[2018-01-08] MEDS: ACETAMINOPHEN 325 MG TABLET PO PRN ×3 (10:58→22:21)
[2018-01-08] MEDS: TRACE ELEMENTS (5) 1 ML, MULTIVITAMIN INJ 10 ML in AMINO ACIDS/DEXT/LYTES 4.25-5% 2,000 ML IV SCH (16:47)
[2018-01-08 16:51] LABS: Apearance,Urine CLOUDY (Clear); Bacteria,Urine Occasional /HPF (Few); Bilirubin,Urine Negative (Negative); Blood, Urine Large mg/dL (Negative); Glucose,Urine (UA) 50 mg/dL (Negative); Ketones,Urine Negative (Negative); Mucus,Urine Occasional /LPF (Occasional); Nitrite,Urine Negative (Negative); Protein,Urine 100 MG/DL; RBC,Urine 98 /HPF (0-4); Squamous Epithelial Cell,Urine Occasional /HPF (0-10); Urine Color Yellow (Yellow); Urine Specific Gravity 1.013 (1.001-1.035); Urine Urobilinogen < 2.0 EU/DL (0.2-1.0); WBC,Urine 44 /HPF (0-6)
[2018-01-08] MEDS: MICAFUNGIN 100 MG in SODIUM CHLORIDE 0.9% 100 ML IV SCH (16:52)
[2018-01-08] MEDS: fentaNYL INJ 1,250 MCG in SODIUM CHLORIDE 0.9% 225 ML IV PRN (19:35)
[2018-01-08] MEDS: SIMVASTATIN 10 MG TABLET PO SCH (21:25)
[2018-01-09] MEDS: INSULIN REGULAR 100 UNIT/ML SUBCUT SCH ×4 (00:06→18:50)
[2018-01-09] MEDS: LEVOFLOXACIN INJ 750 MG in PREMIX 1 EACH IV SCH (00:07)
[2018-01-09] MEDS: ALBUTEROL/IPRATROPIUM 3 ML NEB RESP TX SCH ×4 (00:11→19:24)
[2018-01-09] MEDS ORDERED: KETOROLAC 30 MG/1 ML VIAL IV PRN (01:58)
[2018-01-09] MEDS ORDERED: fentaNYL 100 MCG/2 ML VIAL IV ONE (01:59)
[2018-01-09] MEDS ORDERED: SODIUM CHLORIDE 0.9% 500 ML IV ONE ×2 (01:59→02:30)
[2018-01-09] MEDS: methylPREDNISolone SOD SUC 125 MG/2 ML VIAL IV SCH ×3 (02:56→18:54)
[2018-01-09] MEDS: PIPERACILLIN/TAZOBACTAM 3,375 MG in SODIUM CHLORIDE 0.9% 100 ML IV SCH ×3 (02:57→18:54)
[2018-01-09] MEDS: METOCLOPRAMIDE 10 MG/2 ML VIAL IV SCH ×4 (03:05→21:32)
[2018-01-09 03:12] LABS: Basophils % 0.2 % (0.0-0.8); Hematocrit 39.5 VOL% (42.0-52.0); Hemoglobin 12.3 GM/DL (14.0-18.0); Immature Granulocytes % 1.5 %; Immature Granulocytes Absolute 0.31 #; Lymphocytes # 0.4 10*3/uL (1.4-4.0); Mean Corpuscular HGB Conc 31.1 GM/DL (32-36); Mean Corpuscular Hemoglobin 28 PG (27-34); Mean Corpuscular Volume 90.6 FL (87-102); Monocytes # 0.9 10*3/uL (0.11-0.8); Monocytes % 4.6 % (1.7-12.7); Neutrophils # 18.7 10*3/uL (1.4-7.4); Neutrophils % 91.7 % (38.7-73.9); Platelet Count 227 T/CUMM (130-400); Red Blood Count 4.36 MC/CUMM (3.8-5.5); Red Cell Distribution Width 14.9 % (9.3-17.3); White Blood Count 20.4 T/CUMM (4-12)
[2018-01-09 03:34] LABS: Band Neutrophils 12 % (0-10); Lymphocytes 2 % (20-55); Segmented Neutrophils 80 % (50-85); Total Cells Counted 100
[2018-01-09 03:57] LABS: Calcium 8.1 MG/DL (8.5-10.1); Osmolality,Calculated 324.4 MOS/KG (273-304)
[2018-01-09] MEDS ORDERED: SODIUM CHLORIDE 0.9% 1,000 ML IV ONE ×3 (04:07→08:45)
[2018-01-09 04:36] LABS: ABG Base Excess -5.6 MMOL/L (-2.5-2.5); ABG HCO3 19.9 MMOL/L (20-26); ABG Oxygen Saturation 99.5 % (95-100); ABG PCO2 35.4 MM HG (35-48); ABG PH 7.347 (7.35-7.45); ABG TCO2 17.1 MMOL/L (23-27); Allen Test Positive; Pt O2 Delivery Device Ventilator
[2018-01-09] MEDS: SODIUM CHLORIDE 0.45% 1,000 ML IV SCH ×2 (05:30→19:01)
[2018-01-09] MEDS ORDERED: METOPROLOL TARTRATE 5 MG/5 ML VIAL IV ONE (06:21)
[2018-01-09] MEDS: fentaNYL INJ 1,250 MCG in SODIUM CHLORIDE 0.9% 225 ML IV PRN ×4 (07:41→22:30)
[2018-01-09] MEDS ORDERED: NOREPINEPHRINE 8 MG in SODIUM CHLORIDE 0.9% 242 ML IV PRN (08:15)
[2018-01-09] MEDS ORDERED: NOREPINEPHRINE 4 MG/4 ML VIAL IV ONE (08:16)
[2018-01-09] MEDS ORDERED: DIGOXIN 0.5 MG/2 ML AMP IV ONE (08:36)
[2018-01-09] MEDS ORDERED: DILTIAZEM 50 MG/10 ML VIAL IV ONE (08:41)
[2018-01-09] MEDS ORDERED: SODIUM CHLORIDE 0.9% 100 ML IV ONE (08:45)
[2018-01-09] MEDS ORDERED: DILTIAZEM 100 MG VIAL.ADD IV ONE (08:47)
[2018-01-09] MEDS: DILTIAZEM INJ 100 MG in SODIUM CHLORIDE 0.9% 100 ML IV SCH (08:50)
[2018-01-09] MEDS ORDERED: ENOXAPARIN 100 MG/ML SYRINGE SUBCUT ONE (09:14)
[2018-01-09] MEDS: ENOXAPARIN 40 MG/0.4 ML SYRINGE SUBCUT SCH (09:26)
[2018-01-09] MEDS: METOPROLOL TARTRATE 100 MG TABLET PO SCH (09:26)
[2018-01-09] MEDS: ASPIRIN EC 81 MG TABLET PO SCH (09:26)
[2018-01-09] MEDS: PANTOPRAZOLE 40 MG VIAL IV SCH (09:26)
[2018-01-09] MEDS: amLODIPine 5 MG TABLET PO SCH (09:27)
[2018-01-09] MEDS ORDERED: AMIODARONE INJ 450 MG in DEXTROSE 5% 241 ML IV SCH (09:30)
[2018-01-09] MEDS: VECURONIUM 10 MG VIAL IV PRN (12:09)
[2018-01-09] MEDS: AMIODARONE INJ 450 MG in DEXTROSE 5% 241 ML IV SCH (15:35)
[2018-01-09] MEDS: MICAFUNGIN 100 MG in SODIUM CHLORIDE 0.9% 100 ML IV SCH (15:35)
[2018-01-09] MEDS ORDERED: TRACE ELEMENTS (5) 1 ML, MULTIVITAMIN INJ 10 ML, INSULIN REGULAR 20 UNIT in AMINO ACIDS... IV SCH (17:00)
[2018-01-09] MEDS: MIDAZOLAM 100 MG in SODIUM CHLORIDE 0.9% 80 ML IV PRN (17:56)
[2018-01-09] MEDS: SIMVASTATIN 10 MG TABLET PO SCH (21:32)
[2018-01-10] MEDS: VECURONIUM 10 MG VIAL IV PRN ×3 (00:25→19:53)
[2018-01-10] MEDS: fentaNYL INJ 1,250 MCG in SODIUM CHLORIDE 0.9% 225 ML IV PRN ×6 (00:54→12:17)
[2018-01-10] MEDS: ALBUTEROL/IPRATROPIUM 3 ML NEB RESP TX SCH ×4 (00:56→19:25)
[2018-01-10] MEDS: INSULIN REGULAR 100 UNIT/ML SUBCUT SCH ×4 (01:31→18:31)
[2018-01-10] MEDS: METOCLOPRAMIDE 10 MG/2 ML VIAL IV SCH ×4 (03:03→22:08)
[2018-01-10] MEDS: methylPREDNISolone SOD SUC 125 MG/2 ML VIAL IV SCH ×3 (03:03→18:32)
[2018-01-10] MEDS: PIPERACILLIN/TAZOBACTAM 3,375 MG in SODIUM CHLORIDE 0.9% 100 ML IV SCH ×3 (03:04→18:31)
[2018-01-10 04:13] LABS: ABG Base Excess -8.7 MMOL/L (-2.5-2.5); ABG HCO3 17.5 MMOL/L (20-26); ABG Oxygen Saturation 98.3 % (95-100); ABG PCO2 36.6 MM HG (35-48); ABG PH 7.285 (7.35-7.45); ABG TCO2 15.6 MMOL/L (23-27)
[2018-01-10] MEDS: DILTIAZEM INJ 100 MG in SODIUM CHLORIDE 0.9% 100 ML IV SCH ×3 (04:38→23:45)
[2018-01-10 04:58] LABS: Basophils % 0.2 % (0.0-0.8); Hematocrit 38.9 VOL% (42.0-52.0); Hemoglobin 11.9 GM/DL (14.0-18.0); Immature Granulocytes % 1.7 %; Immature Granulocytes Absolute 0.31 #; Lymphocytes # 0.9 10*3/uL (1.4-4.0); Lymphocytes % 4.7 % (21.2-54.2); Mean Corpuscular HGB Conc 30.6 GM/DL (32-36); Mean Corpuscular Hemoglobin 28 PG (27-34); Monocytes # 0.9 10*3/uL (0.11-0.8); Monocytes % 4.7 % (1.7-12.7); Neutrophils # 16.3 10*3/uL (1.4-7.4); Neutrophils % 88.7 % (38.7-73.9); Platelet Count 210 T/CUMM (130-400); Red Blood Count 4.23 MC/CUMM (3.8-5.5); Red Cell Distribution Width 14.7 % (9.3-17.3); White Blood Count 18.4 T/CUMM (4-12)
[2018-01-10 05:22] LABS: Band Neutrophils 1 % (0-10); Lymphocytes 3 % (20-55); Segmented Neutrophils 93 % (50-85); Total Cells Counted 100
[2018-01-10 05:23] LABS: Hypochromasia 1+; Microcytosis Slight
[2018-01-10 05:36] LABS: Calcium 8.2 MG/DL (8.5-10.1); Osmolality,Calculated 329.8 MOS/KG (273-304); Potassium 5.2 MMOL/L (3.5-5.1)
[2018-01-10] MEDS: hydrALAZINE 20 MG/1 ML VIAL IV PRN ×2 (05:57→17:45)
[2018-01-10] MEDS: AMIODARONE INJ 450 MG in DEXTROSE 5% 241 ML IV SCH (07:37)
[2018-01-10] MEDS: METOPROLOL TARTRATE 100 MG TABLET PO SCH ×2 (09:07→20:22)
[2018-01-10] MEDS: ENOXAPARIN 40 MG/0.4 ML SYRINGE SUBCUT SCH (09:07)
[2018-01-10] MEDS: amLODIPine 5 MG TABLET PO SCH (09:07)
[2018-01-10] MEDS: PANTOPRAZOLE 40 MG VIAL IV SCH (09:07)
[2018-01-10] MEDS: ASPIRIN EC 81 MG TABLET PO SCH (09:07)
[2018-01-10] MEDS: MIDAZOLAM 100 MG in SODIUM CHLORIDE 0.9% 80 ML IV PRN ×2 (09:20→18:02)
[2018-01-10] MEDS: SODIUM CHLORIDE 0.45% 1,000 ML IV SCH ×2 (10:10→23:52)
[2018-01-10 10:55] LABS: ABG Base Excess -9.7 MMOL/L (-2.5-2.5); ABG HCO3 16.8 MMOL/L (20-26); ABG Oxygen Saturation 98.9 % (95-100); ABG PCO2 35.9 MM HG (35-48); ABG TCO2 14.8 MMOL/L (23-27)
[2018-01-10] MEDS ORDERED: ENOXAPARIN 40 MG/0.4 ML SYRINGE SUBCUT SCH (14:07)
[2018-01-10] MEDS: fentaNYL INJ 2,500 MCG in SODIUM CHLORIDE 0.9% 450 ML IV PRN ×2 (14:51→19:52)
[2018-01-10] MEDS: MICAFUNGIN 100 MG in SODIUM CHLORIDE 0.9% 100 ML IV SCH (15:45)
[2018-01-10] MEDS: ENOXAPARIN 150 MG/ML SYRINGE SUBCUT SCH (15:49)
[2018-01-10] MEDS: TRACE ELEMENTS (5) 1 ML, MULTIVITAMIN INJ 10 ML, INSULIN REGULAR 20 UNIT in AMINO ACIDS... IV SCH (17:13)
[2018-01-10] MEDS: SIMVASTATIN 10 MG TABLET PO SCH (20:22)
[2018-01-10] MEDS ORDERED: PROMETHAZINE INJ 25 MG in SODIUM CHLORIDE 0.9% 50 ML IV PRN (22:07)
[2018-01-10] MEDS ORDERED: BISACODYL 10 MG SUPP RECTAL ONE (22:16)
[2018-01-10] MEDS ORDERED: ALBUMIN 25% 25 GM in PREMIX 1 EACH IV ONE (22:20)
[2018-01-10] MEDS ORDERED: SODIUM BICARBONATE 50 MEQ/50 ML SYRINGE IV ONE (22:20)
[2018-01-10] MEDS ORDERED: SODIUM BICARB INJ 50 MEQ in SODIUM CHLORIDE 0.45% 1,000 ML IV SCH (22:30)
[2018-01-10] MEDS: ONDANSETRON 4 MG/2 ML VIAL IV PRN (22:46)
[2018-01-11] MEDS: fentaNYL INJ 2,500 MCG in SODIUM CHLORIDE 0.9% 450 ML IV PRN ×6 (00:25→23:52)
[2018-01-11] MEDS: INSULIN REGULAR 100 UNIT/ML SUBCUT SCH ×5 (00:27→18:18)
[2018-01-11] MEDS: ALBUTEROL/IPRATROPIUM 3 ML NEB RESP TX SCH ×4 (00:40→19:48)
[2018-01-11] MEDS: AMIODARONE INJ 450 MG in DEXTROSE 5% 241 ML IV SCH ×2 (01:00→16:27)
[2018-01-11] MEDS: MIDAZOLAM 100 MG in SODIUM CHLORIDE 0.9% 80 ML IV PRN ×3 (02:30→18:12)
[2018-01-11] MEDS: PIPERACILLIN/TAZOBACTAM 3,375 MG in SODIUM CHLORIDE 0.9% 100 ML IV SCH ×3 (03:03→18:23)
[2018-01-11] MEDS: methylPREDNISolone SOD SUC 125 MG/2 ML VIAL IV SCH ×3 (03:03→18:20)
[2018-01-11] MEDS: METOCLOPRAMIDE 10 MG/2 ML VIAL IV SCH ×4 (03:04→21:46)
[2018-01-11] MEDS: VECURONIUM 10 MG VIAL IV PRN (03:13)
[2018-01-11 03:32] LABS: Basophils # 0.1 10*3/uL (0.0-0.2); Basophils % 0.2 % (0.0-0.8); Hematocrit 39.7 VOL% (42.0-52.0); Hemoglobin 12.4 GM/DL (14.0-18.0); Immature Granulocytes % 2.6 %; Lymphocytes # 0.8 10*3/uL (1.4-4.0); Lymphocytes % 3.6 % (21.2-54.2); Mean Corpuscular HGB Conc 31.2 GM/DL (32-36); Mean Corpuscular Hemoglobin 28 PG (27-34); Mean Corpuscular Volume 90.8 FL (87-102); Mean Platelet Volume 12.2 FL (9.6-12.0); Monocytes # 1.4 10*3/uL (0.11-0.8); Monocytes % 6.3 % (1.7-12.7); NRBC # 0.03 10*3/uL; Neutrophils # 19.8 10*3/uL (1.4-7.4); Neutrophils % 87.3 % (38.7-73.9); Platelet Count 203 T/CUMM (130-400); Red Blood Count 4.37 MC/CUMM (3.8-5.5); Red Cell Distribution Width 14.9 % (9.3-17.3); White Blood Count 22.7 T/CUMM (4-12)
[2018-01-11 03:52] LABS: Band Neutrophils 14 % (0-10); Lymphocytes 4 % (20-55); Myelocytes 1 %; Segmented Neutrophils 75 % (50-85); Total Cells Counted 100
[2018-01-11 03:58] LABS: Calcium 8.2 MG/DL (8.5-10.1); Osmolality,Calculated 337.3 MOS/KG (273-304); Potassium 5.2 MMOL/L (3.5-5.1)
[2018-01-11 04:14] LABS: Allen Test Positive; Pt O2 Delivery Device Ventilator
[2018-01-11 04:16] LABS: ABG Base Excess -11.7 MMOL/L (-2.5-2.5); ABG HCO3 15.7 MMOL/L (20-26); ABG Oxygen Saturation 93.4 % (95-100); ABG PCO2 40.8 MM HG (35-48); ABG PO2 81.7 MM HG (80-95); ABG TCO2 16.9 MMOL/L (23-27)
[2018-01-11 04:19] LABS: ABG PH 7.202 (7.35-7.45)
[2018-01-11] MEDS ORDERED: SODIUM BICARBONATE 50 MEQ/50 ML SYRINGE IV ONE ×2 (04:30→04:35)
[2018-01-11] MEDS: ONDANSETRON 4 MG/2 ML VIAL IV PRN (04:37)
[2018-01-11] MEDS: TRACE ELEMENTS (5) 1 ML, MULTIVITAMIN INJ 10 ML, INSULIN REGULAR 20 UNIT in AMINO ACIDS... IV SCH ×2 (07:00→21:50)
[2018-01-11] MEDS ORDERED: FUROSEMIDE 20 MG/2 ML VIAL IV ONE (07:45)
[2018-01-11] MEDS: PROPOFOL 1,000 MG/100 ML BOTTLE IV SCH ×3 (08:00→22:14)
[2018-01-11] MEDS: CISATRACURIUM 200 MG in SODIUM CHLORIDE 0.9% 180 ML IV SCH ×2 (08:39→22:51)
[2018-01-11] MEDS: PANTOPRAZOLE 40 MG VIAL IV SCH (09:37)
[2018-01-11] MEDS: ASPIRIN EC 81 MG TABLET PO SCH (09:38)
[2018-01-11] MEDS: METOPROLOL TARTRATE 100 MG TABLET PO SCH ×2 (09:38→20:06)
[2018-01-11] MEDS: amLODIPine 5 MG TABLET PO SCH (09:38)
[2018-01-11] MEDS: CITRIC ACID/SODIUM CITRATE 30 ML UDCUP PO SCH ×2 (09:38→20:06)
[2018-01-11] MEDS ORDERED: ALBUMIN 25% 25 GM in PREMIX 1 EACH IV ONE ×2 (10:30→22:30)
[2018-01-11 10:47] LABS: ABG Base Excess -11.1 MMOL/L (-2.5-2.5); ABG HCO3 15.7 MMOL/L (20-26); ABG Oxygen Saturation 96.1 % (95-100); ABG PCO2 36.9 MM HG (35-48); ABG PH 7.239 (7.35-7.45); ABG TCO2 14.3 MMOL/L (23-27)
[2018-01-11] MEDS: ENOXAPARIN 150 MG/ML SYRINGE SUBCUT SCH (14:28)
[2018-01-11] MEDS: MICAFUNGIN 100 MG in SODIUM CHLORIDE 0.9% 100 ML IV SCH (15:56)
[2018-01-11] MEDS: DILTIAZEM INJ 100 MG in SODIUM CHLORIDE 0.9% 100 ML IV SCH (18:28)
[2018-01-11] MEDS: SIMVASTATIN 10 MG TABLET PO SCH (20:06)
[2018-01-12] MEDS: INSULIN REGULAR 100 UNIT/ML SUBCUT SCH ×4 (00:01→19:45)
[2018-01-12] MEDS: ALBUTEROL/IPRATROPIUM 3 ML NEB RESP TX SCH ×3 (00:27→11:10)
[2018-01-12] MEDS: MIDAZOLAM 100 MG in SODIUM CHLORIDE 0.9% 80 ML IV PRN ×3 (02:20→16:55)
[2018-01-12] MEDS: PIPERACILLIN/TAZOBACTAM 3,375 MG in SODIUM CHLORIDE 0.9% 100 ML IV SCH (03:02)
[2018-01-12] MEDS: ONDANSETRON 4 MG/2 ML VIAL IV PRN (03:02)
[2018-01-12] MEDS: methylPREDNISolone SOD SUC 125 MG/2 ML VIAL IV SCH ×2 (03:02→10:41)
[2018-01-12] MEDS: METOCLOPRAMIDE 10 MG/2 ML VIAL IV SCH ×2 (03:03→10:41)
[2018-01-12 03:45] LABS: Basophils # 0.1 10*3/uL (0.0-0.2); Basophils % 0.2 % (0.0-0.8); Hematocrit 35.4 VOL% (42.0-52.0); Immature Granulocytes % 3.6 %; Immature Granulocytes Absolute 0.82 #; Lymphocytes # 0.9 10*3/uL (1.4-4.0); Lymphocytes % 3.8 % (21.2-54.2); Mean Corpuscular HGB Conc 31.1 GM/DL (32-36); Mean Corpuscular Hemoglobin 28 PG (27-34); Mean Corpuscular Volume 90.3 FL (87-102); Mean Platelet Volume 12.8 FL (9.6-12.0); Monocytes % 4.5 % (1.7-12.7); Neutrophils # 19.9 10*3/uL (1.4-7.4); Neutrophils % 87.9 % (38.7-73.9); Platelet Count 168 T/CUMM (130-400); Red Blood Count 3.92 MC/CUMM (3.8-5.5); White Blood Count 22.6 T/CUMM (4-12)
[2018-01-12 04:09] LABS: ABG Base Excess -11.7 MMOL/L (-2.5-2.5); ABG HCO3 15.9 MMOL/L (20-26); ABG Oxygen Saturation 92.6 % (95-100); ABG PCO2 42.5 MM HG (35-48); ABG PO2 78.6 MM HG (80-95); ABG TCO2 17.2 MMOL/L (23-27)
[2018-01-12 04:11] LABS: Band Neutrophils 3 % (0-10); Lymphocytes 7 % (20-55); Nucleated Red Blood Cells 1 (0-5); Segmented Neutrophils 88 % (50-85); Total Cells Counted 100
[2018-01-12 04:12] LABS: Hypochromasia Slight; Platelet Estimate Normal
[2018-01-12 04:15] LABS: ABG PH 7.191 (7.35-7.45)
[2018-01-12 04:34] LABS: Calcium 7.7 MG/DL (8.5-10.1); Osmolality,Calculated 341.7 MOS/KG (273-304); Potassium 4.9 MMOL/L (3.5-5.1)
[2018-01-12 04:50] LABS: Prealbumin 17.3 MG/DL (20-40)
[2018-01-12] MEDS: fentaNYL INJ 2,500 MCG in SODIUM CHLORIDE 0.9% 450 ML IV PRN ×3 (05:00→16:55)
[2018-01-12] MEDS: PROPOFOL 1,000 MG/100 ML BOTTLE IV SCH ×2 (05:00→11:15)
[2018-01-12] MEDS ORDERED: SODIUM BICARB INJ 50 MEQ in SODIUM CHLORIDE 0.45% 1,000 ML IV SCH (05:30)
[2018-01-12] MEDS ORDERED: SODIUM BICARBONATE 50 MEQ/50 ML SYRINGE IV ONE ×2 (05:30→14:03)
[2018-01-12] MEDS: PANTOPRAZOLE 40 MG VIAL IV SCH (08:29)
[2018-01-12] MEDS: ASPIRIN EC 81 MG TABLET PO SCH (08:30)
[2018-01-12] MEDS: amLODIPine 5 MG TABLET PO SCH (08:30)
[2018-01-12] MEDS: METOPROLOL TARTRATE 100 MG TABLET PO SCH (08:30)
[2018-01-12] MEDS: CITRIC ACID/SODIUM CITRATE 30 ML UDCUP PO SCH (08:30)
[2018-01-12] MEDS: AMIODARONE INJ 450 MG in DEXTROSE 5% 241 ML IV SCH ×2 (08:48→19:46)
[2018-01-12] MEDS ORDERED: SODIUM BICARBONATE 50 MEQ/50 ML SYRINGE IV SCH (09:00)
[2018-01-12] MEDS ORDERED: PHENYLEPHRINE 2.5% OPH SOLN 15 ML BOTTLE BOTH EYES SCH (11:00)
[2018-01-12] MEDS ORDERED: TROPICAMIDE 1% BOTH EYES SCH (11:00)
[2018-01-12] MEDS: CISATRACURIUM 200 MG in SODIUM CHLORIDE 0.9% 180 ML IV SCH (11:10)
[2018-01-12] MEDS: TRACE ELEMENTS (5) 1 ML, MULTIVITAMIN INJ 10 ML, INSULIN REGULAR 20 UNIT in AMINO ACIDS... IV SCH (11:22)
[2018-01-12 12:39] LABS: ABG Base Excess -12.7 MMOL/L (-2.5-2.5); ABG HCO3 14.4 MMOL/L (20-26); ABG Oxygen Saturation 82.3 % (95-100); ABG PCO2 48.1 MM HG (35-48); ABG TCO2 15.3 MMOL/L (23-27)
[2018-01-12 12:41] LABS: ABG PH 7.141 (7.35-7.45)
[2018-01-12] MEDS: DILTIAZEM INJ 100 MG in SODIUM CHLORIDE 0.9% 100 ML IV SCH (13:20)
[2018-01-12] MEDS ORDERED: ALBUMIN 25% 50 GM in PREMIX 1 EACH IV ONE (13:47)
[2018-01-12] MEDS ORDERED: FUROSEMIDE 100 MG/10 ML VIAL IV SCH (15:00)
[2018-01-12] MEDS ORDERED: HEPARIN/NACL 0.9% 2 UNITS/ML 500 ML IV ONE (15:03)
[2018-01-12] MEDS ORDERED: FUROSEMIDE 40 MG/4 ML VIAL IV SCH (16:00)
[2018-01-12] MEDS: ENOXAPARIN 150 MG/ML SYRINGE SUBCUT SCH (16:27)
[2018-01-12] MEDS ORDERED: TRACE ELEMENTS IV SCH (17:00)
[2018-01-12] MEDS ORDERED: INSULIN REGULAR IV SCH (17:00)
[2018-01-12] MEDS ORDERED: [UNRECOGNIZED DRUG - OTHER] IV SCH (17:00)
[2018-01-12] MEDS ORDERED: MULTIVITAMIN IV SCH (17:00)
[2018-01-12] MEDS: MICAFUNGIN 100 MG in SODIUM CHLORIDE 0.9% 100 ML IV SCH (17:22)
[2018-01-12] MEDS ORDERED: HEPARIN 10,000 UNIT/10 ML VIAL IV PRN (17:49)
[2018-01-12] MEDS ORDERED: NOREPINEPHRINE 4 MG/4 ML VIAL IV ONE (18:46)
[2018-01-12 18:59] LABS: ABG Base Excess 0.1 MMOL/L (-2.5-2.5); ABG Oxygen Saturation 69.7 % (95-100); ABG PO2 46.1 MM HG (80-95); ABG TCO2 31.2 MMOL/L (23-27)
[2018-01-12 19:01] LABS: ABG PH 7.129 (7.35-7.45)
[2018-01-12 19:02] LABS: ABG PCO2 99.5 MM HG (35-48)
[2018-01-12] MEDS ORDERED: CALCIUM CHLORIDE 1,000 MG/10 ML SYRINGE IV ONE (19:13)
[2018-01-12 19:32] VITALS: BP 151/89
== END 2018-01-12 19:58 | disposition expired | DRG 917 ==
LOC: EDBD → EDUNIT# → N.ED 09:59 → N.EDINP 11:44 → SUATTDRO 11:44 → N.ICU 14:20
PROVIDERS: ADMIT Family Medicine; ATTEND Internal Medicine